=== PATIENT | male | born 1985 | race Caucasian/White ===

== ENCOUNTER 2024-01-31 04:31 | Emergency (ER) | payer BC, OTHER ==
[2024-01-31] MEDS: Sodium Chloride 0.9% 1,000 ML IV ONE ×2 (05:05→06:08)
[2024-01-31] MEDS: Ondansetron 4 MG/2 ML SDV IVPUSH ONE (05:05)
[2024-01-31] MEDS: Famotidine 20 MG/2 ML SDV IVPUSH ONE (05:05)
[2024-01-31] MEDS: Aluminum Hydroxide/Magnesium Hydroxide/Simethicone Susp 30 ML Cup PO ONE (05:07)
[2024-01-31 05:28] LABS: A/G RATIO 1.2 (1-2); ALBUMIN 5.1 g/dl (3.4-5.0); ANION GAP 36.9 (5-15); BILIRUBIN TOTAL 1.3 mg/dL (0.2-1.0); BUN/CREATININE RATIO 10.5 (14-18); CALCIUM 9.7 mg/dL (8.5-10.1); CREATININE 1.9 mg/dL (0.7-1.3); EST CRCL DRUG DOSING (CG) 60.09 mL/min; ETHANOL BLOOD MEDICAL 0.03 gm% (0.00); POTASSIUM,K 4.9 mEq/L (3.5-5.1); PROTEIN TOTAL,TP 9.2 g/dl (6.4-8.2)
[2024-01-31 05:31] LABS: BASOPHILS ABSOLUTE AUTO 0.1 K/mm3 (0.0-0.2); BASOPHILS PERCENT AUTO 0.3 % (0.0-1.0); HEMATOCRIT 54.5 % (42.0-52.0); IMMATURE GRAN ABSOLUTE AUTO 0.09 K/mm3 (0.00-0.05); IMMATURE GRAN PERCENT AUTO 0.4 % (0.0-0.4); LYMPHOCYTES ABSOLUTE AUTO 1.1 K/mm3 (1.0-4.8); MEAN CORPUSCULAR HEMOGLOBIN 32.4 pg (28.0-32.0); MEAN CORPUSCULAR HGB CONC 36.7 g/dl (32.0-36.0); MEAN CORPUSCULAR VOLUME 88.3 fl (83.0-99.0); MEAN PLATELET VOLUME 8.5 fl (9.4-12.4); MONOCYTES PERCENT AUTO 4.8 % (0.0-8.0); NEUTROPHILS ABSOLUTE AUTO 18.8 K/mm3 (1.8-7.7); NEUTROPHILS PERCENT AUTO 89.5 % (41.0-71.0); PLATELET COUNT,PLT 325 K/mm3 (150-400); RED BLOOD CELL COUNT 6.17 M/mm3 (4.52-5.90); WHITE BLOOD CELL COUNT,WBC 21.05 K/mm3 (3.9-11.3)
== END 2024-01-31 07:13 | disposition home or self-care (01) ==
LOC: JD.ED 04:31
DX: K29.20 Alcoholic gastritis without bleeding (principal); F10.10 Alcohol abuse, uncomplicated; Y90.9 Presence of alcohol in blood, level not specified; Z91.012 Allergy to eggs; Z88.0 Allergy status to penicillin; Z88.8 Allergy status to other drugs, medicaments and biological substances; Z86.16 Personal history of COVID-19; Z87.891 Personal history of nicotine dependence
CPT/HCPCS: 36415; 80053; 80307; 83690; 85025; 96361; 96374; 96375; 99284; A9270; J2405; J3490; J7030